=== PATIENT | female | born 1990 | race Caucasian/White ===

== ENCOUNTER 2019-12-07 07:58 | Inpatient (IN) ==
--- OUTSIDE RECORDS SUMMARY | 2019-12-07 08:11 | External Medical Summary | Continuity of Care Document ---
:1990 Author Name Florencio Roman, Provider Address Unavailable Unavailable , Care Team Providers Name Role Phone [facility], Nursing Station Unavailable [email or web address] PCP, UNKNOWN Unavailable Unavailable Problems Active medical history not documented Allergies and Adverse Reactions Tetracyclines (Allergy) Medications Medications not documented Procedures Procedures not documented Immunizations Immunizations not documented Plan of Treatment Planned Observations Planned Goals not documented Results No Known Results Results not documented Encounters Appointment; [facility], Nursing Station 25-May-2018 9:30 Encounter Diagnosis: Problem not documented Appointment; [facility], Nursing Station 27-May-2018 10:15 Encounter Diagnosis: Problem not documented
[2019-12-07] MEDS ORDERED: OXYTOCIN 30 UNITS/500 ML BAG IV PRN ×3 (08:26→19:13)
--- NOTE | 2019-12-07 08:33 | History & Physical Report ---
Date of Service December 07, 2019 Assessment & Plan (1) Amniotic fluid leakin yo at 39.3 wks with SROM, at 06;30 and contractions, in labor VSS Afebrile FHR reassuring GBS negative Plan to admit, monitor, IVF, Epidural anticipate (2) Uterine contractions at greater than 20 weeks of gestation: History of Present Illness Chief Complaint: Leaking of fluids Primary Care Provider: Slime Hodge DO Patient is a 29 yo at 39.3 wks who felt a gush of clear fluid leaking at 06:30 am and has been leaking since then Ctxs started right after, seems like all the time and painful She desires epidural for pain No VB +FM has been complicated by 1) Depression: on Cymbalta 2) Rh negative 3) h/o LEEP, last pap in 2018 HPV+ 4) renal pylectasis Allergies Allergy/AdvReac Type Severity Reaction Status Date / Time No Known Allergies Allergy Verified 12/07/19 08:16 Home Medications Home Medications Medication Instructions Recorded Confirmed Type PNV cmb#95-ferrous fumarate-FA 1 tab PO DAILY 12/07/19 12/07/19 History [] duloxetine [Cymbalta] 30 mg PO BID 12/07/19 12/07/19 History Patient History Medical History Abnormal Pap smear of cervix hx of abnormal pap in 2009 LANA III, since that Paps in 2011 and 2012 normal, +HPV Acne Anxiety Takes Cymbalta Breast enlargement 2012 Depression Takes Cymbalta [employer] History No h/o STD's, no HSV/ GC/ Chlamydia Review of Systems All systems reviewed & are unremarkable except as noted in HPI & below Physical Exam Constitutional: WD/WN, vitals as above well developed, well nourished and + acute distress (with ctxs, desires epidural) Genitourinary: Done by her nurse Hlary: no gross leaking, cervix 4/ %100/ +1 Results & Data Vital Signs (Past 12 Hours) Vital Signs Temp Resp 12/07/19 08:06 36.8 C 18 Monitoring External Monitor Categ I Tocodynamometer ctxs q 2-3 min
[2019-12-07] MEDS: LACTATED RINGER'S 1,000 ML IV PRN ×2 (08:35→09:32)
[2019-12-07 08:46] LABS: Hematocrit (blood only) 35.1 % (37-47); Hemoglobin 12.4 g/dL (12.0-16.0); Mean Corpuscular Hemoglobin 30.8 pg (25-34); Mean Corpuscular Hgb Conc 35.3 g/dL (32-36); Mean Corpuscular Volume 87.1 fL (80-100); Mean Platelet Volume 10.4 fL (7.4-10.4); Platelet Count 206 K/uL (130-400); RDW Coefficient of Variation 12.7 % (11.5-14.5); RDW Standard Deviation 40.6 fL (36.4-46.3); Red Blood Count 4.03 M/uL (4.2-5.4); White Blood Count 8.03 K/uL (4.8-10.8)
[2019-12-07] MEDS ORDERED: BUPIVACAINE 0.25% 30 ML VIAL ONE (08:48)
[2019-12-07] MEDS ORDERED: ePHEDrine sulfate 50 MG/ML AMP ONE (08:48)
[2019-12-07] MEDS ORDERED: fentaNYL citrate 100 MCG/2 ML VIAL ONE (08:48)
[2019-12-07] MEDS ORDERED: fentaNYL 2MCG/ML ROPIV 1.25MG/ML 100 ML BAG EPI ONE (08:49)
[2019-12-07 09:15] LABS: Albumin Level 2.6 gm/dl (3.4-5.0); BUN Creatinine Ratio 10.6 (10-20); Calcium 8.9 mg/dl (8.5-10.1); Creatinine Clr Calc Pharmacy 77.8 ml/min; Est GFR (African American) 88.6; Est GFR (Non-African American) 76.5
[2019-12-07 09:18] LABS: Albumin Globulin Ratio 0.6 (0.9-2); Bilirubin,Total 0.3 mg/dl (0.2-1); Globulin 4.1 gm/dl (2.5-4.0); Total Protein 6.7 gm/dl (6.4-8.2)
[2019-12-07] MEDS ORDERED: NALOXONE HCL 1 MG in SODIUM CHLORIDE 0.9% 1000ML 1,000 ML IV PRN (10:04)
[2019-12-07] MEDS ORDERED: NALOXONE HCL 0.4 MG/1 ML VIAL/CARP IV PRN (10:04)
[2019-12-07] MEDS ORDERED: PROMETHAZINE HCL 6.25 MG in SODIUM CHLORIDE 0.9% 50 ML IV PRN (10:04)
[2019-12-07] MEDS ORDERED: ePHEDrine sulfate 50 MG/ML AMP IV PRN (10:04)
[2019-12-07] MEDS ORDERED: ONDANSETRON INJ 2 MG/ML 2 ML VIAL IV PRN (10:04)
[2019-12-07] MEDS ORDERED: DiphenhydrAMINE HCL 50 MG/ML VIAL IV PRN (10:04)
[2019-12-07] MEDS ORDERED: NALBUPHINE HCL INJ 10 MG/ML AMP IV PRN (10:04)
[2019-12-07] MEDS ORDERED: fentaNYL 2MCG/ML ROPIV 1.25MG/ML 100 ML BAG EPI PRN (10:04)
--- NOTE | 2019-12-07 10:04 | Anesthesiology Consultation ---
Date of Service December 07, 2019 Assessment & Plan (1) Encounter for pre-operative examination: Chart Review Chart Review: Patient NOT seen in Pre Admission Testing and Acceptable Risk for Labor Epidural Consults Requested none ASA ASA2 Proposed Anesthesia Anesthesia Type: Labor Epidural Risk / Benefits Reviewed With: PT / POA / Parent / Guardian, Accepts Plan and Informed Consent Obtained History Height/Weight Height: 5 ft 6 in Weight: 70.76 kg Allergies Allergy/AdvReac Type Severity Reaction Status Date / Time No Known Allergies Allergy Verified 12/07/19 08:16 Medications Home Medications Medication Instructions Recorded Confirmed Last Taken PNV cmb#95-ferrous fumarate-FA 1 tab PO DAILY 12/07/19 12/07/19 12/06/19 22:00 [] duloxetine [Cymbalta] 30 mg PO BID 12/07/19 12/07/19 12/06/19 22:00 Active Medications Generic Name Dose Route Start Last Admin Trade Name Freq PRN Reason Stop Dose Admin Lactated Ringer's 1,000 mls @ 150 mls/hr 12/07/19 08:26 12/07/19 09:32 Lr IV 12/09/19 08:25 150 mls/hr .[id number] PRN Administration L&D Protocol Protocol NPO Date Last Intake of Fluids: 12/07/19 Time Last Intake of Fluids: 06:00 Last Intake of Fluids Comment: water Date Last Intake of Solids: 12/07/19 Time Last Intake of Solids: 06:00 Last Intake of Solids Comment: candy bar Past Medical History Medical History Abnormal Pap smear of cervix hx of abnormal pap in 2009 LANA III, since that Paps in 2011 and 2012 normal, +HPV Acne Anxiety Takes Cymbalta Breast enlargement 2013 Depression Takes Cymbalta Exercise / Class Metabolic Activity II 4-5 Yardwork/Stairs/Walk up hill Past Anesthesia History No Hx of Anesthesia Complications and No Family Hx of Anesthesia Complications History of PONV No Hx of PONV and No Hx of Motion Sickness Social History Smoking Status: Never smoker Hx Alcohol Use: No Hx Substance Use: No substance use type: does not use Physical Exam Vital Signs Last Vital Signs Temp 36.5 C 12/07/19 09:51 Pulse 54 L 12/07/19 10:00 Resp 16 12/07/19 09:51 BP 121/70 12/07/19 10:00 Pulse Ox 100 12/07/19 09:57 ENMT Mouth: no dentition abnormality Thyromental Distance: > or= 3.5 Finger Breadths Mallampati Class: II Neck normal visual inspection Respiratory normal respiratory effort Auscultation: lungs clear to auscultation bilaterally Cardiovascular Rate/Rhythm: regular rate and regular rhythm Psychiatric Orientation: alert Testing Laboratory Results 12/07/19 08:37 12/07/19 08:37
--- NOTE | 2019-12-07 12:56 | Obstetrical Progress Note ---
Date of Service December 07, 2019 Assessment & Plan Admission and Anticipated Discharge Date Admission Date: December 07, 2019 Subjective Patient is reevaluated She feels " fantastic" since epidural No pain VSS Afebrile VE: 5/ 80%/ 0, coned head, gush of clear amniotic fluid FHR categ I Plan to augment with low dose Oxytocin Continue to monitor Results & Data ([facility]) Vital Signs (Past 12 Hours) Vital Signs Temp Pulse Resp BP Pulse Ox 12/07/19 12:52 80 98 12/07/19 12:50 76 110/73 12/07/19 12:47 65 100 12/07/19 12:46 63 117/74 12/07/19 12:42 64 100 12/07/19 12:40 63 112/62 12/07/19 12:37 63 117/74 100 12/07/19 12:32 71 100 12/07/19 12:31 68 109/71 12/07/19 12:27 67 100 12/07/19 12:25 60 120/68 12/07/19 12:22 66 100 12/07/19 12:21 67 114/63 12/07/19 12:17 64 100 12/07/19 12:15 66 115/73 12/07/19 12:12 69 100 12/07/19 12:10 63 116/72 12/07/19 12:07 60 100 12/07/19 12:06 59 L 120/68 12/07/19 12:02 73 100 12/07/19 12:00 59 L 114/68 12/07/19 11:57 59 L 100 12/07/19 11:55 62 114/67 12/07/19 11:52 69 100 12/07/19 11:51 67 115/59 L 12/07/19 11:47 64 100 12/07/19 11:46 63 113/70 12/07/19 11:42 68 116/77 100 12/07/19 11:37 64 99 12/07/19 11:36 63 109/63 12/07/19 11:32 65 100 12/07/19 11:30 62 109/61 12/07/19 11:27 67 100 12/07/19 11:25 67 113/61 12/07/19 11:22 75 100 12/07/19 11:20 65 106/60 12/07/19 11:17 72 100 12/07/19 11:15 64 101/55 L 12/07/19 11:12 64 104/57 L 100 12/07/19 11:07 63 100 12/07/19 11:06 72 114/63 12/07/19 11:02 71 100 12/07/19 11:00 80 128/78 12/07/19 10:57 83 98 12/07/19 10:55 96 H 106/63 12/07/19 10:52 64 100 12/07/19 10:51 69 100/59 L 12/07/19 10:47 67 100 12/07/19 10:45 67 100/55 L 12/07/19 10:42 80 100 12/07/19 10:41 81 133/60 12/07/19 10:37 72 99 12/07/19 10:35 66 100/55 L 12/07/19 10:32 63 98 12/07/19 10:30 65 105/65 12/07/19 10:27 64 98 12/07/19 10:25 69 105/63 12/07/19 10:22 64 100 12/07/19 10:20 61 106/63 12/07/19 10:17 80 100 12/07/19 10:15 66 107/57 L 12/07/19 10:12 58 L 100 12/07/19 10:11 62 97/56 L 12/07/19 10:07 53 L 98 12/07/19 10:06 55 L 122/70 12/07/19 10:04 51 L 117/69 12/07/19 10:02 58 L 122/75 100 12/07/19 10:00 54 L 20 121/70 12/07/19 09:58 57 L 117/72 12/07/19 09:57 54 L 100 12/07/19 09:56 54 L 116/64 12/07/19 09:54 51 L 116/66 12/07/19 09:52 54 L 120/67 99 12/07/19 09:51 36.5 C 16 12/07/19 09:50 54 L 118/66 12/07/19 09:48 56 L 118/65 12/07/19 09:47 66 100 12/07/19 09:46 61 128/67 12/07/19 09:45 20 12/07/19 09:44 55 L 128/62 12/07/19 09:42 76 137/99 100 12/07/19 09:37 65 100 12/07/19 09:32 67 100 12/07/19 09:27 70 100 12/07/19 09:22 59 L 100 12/07/19 09:17 76 100 12/07/19 09:12 64 100 12/07/19 09:07 83 99 12/07/19 09:03 75 93 12/07/19 09:02 54 L 100 12/07/19 08:06 36.8 C 18
--- NOTE | 2019-12-07 17:19 | Obstetrical Progress Note ---
Date of Service December 07, 2019 Assessment & Plan Admission and Anticipated Discharge Date Admission Date: December 07, 2019 Subjective Patient is reevaluated Feels pressure in rectum V 10/+2, small caput FHR categ I Plan to drain bladder and start pushing Continue to monitor Results & Data ([facility]) Vital Signs (Past 12 Hours) Vital Signs Temp Pulse Resp BP Pulse Ox 12/07/19 17:17 102 H 61 L 12/07/19 17:13 63 124/67 12/07/19 17:12 62 100 12/07/19 17:07 62 100 12/07/19 17:02 57 L 100 12/07/19 16:57 57 L 122/75 100 12/07/19 16:52 55 L 100 12/07/19 16:47 55 L 100 12/07/19 16:42 58 L 119/72 100 12/07/19 16:37 55 L 100 12/07/19 16:32 61 100 12/07/19 16:30 61 121/71 12/07/19 16:27 60 100 12/07/19 16:22 61 100 12/07/19 16:20 36.8 C 12/07/19 16:17 56 L 100 12/07/19 16:13 67 136/71 12/07/19 16:12 72 100 12/07/19 16:07 57 L 100 12/07/19 16:02 61 100 12/07/19 15:58 55 L 115/70 12/07/19 15:57 56 L 100 12/07/19 15:52 53 L 100 12/07/19 15:47 79 98 12/07/19 15:43 56 L 109/59 L 12/07/19 15:42 55 L 100 12/07/19 15:37 58 L 100 12/07/19 15:32 56 L 100 12/07/19 15:27 58 L 100 12/07/19 15:22 59 L 100 12/07/19 15:17 58 L 100 12/07/19 15:14 59 L 110/63 12/07/19 15:12 61 100 12/07/19 15:07 59 L 100 12/07/19 15:02 62 100 12/07/19 14:58 56 L 104/62 12/07/19 14:57 55 L 100 12/07/19 14:52 59 L 100 12/07/19 14:47 65 100 12/07/19 14:45 36.8 C 12/07/19 14:42 61 120/70 100 12/07/19 14:37 61 100 12/07/19 14:32 59 L 100 12/07/19 14:28 58 L 112/67 12/07/19 14:27 59 L 100 12/07/19 14:22 60 100 05 14:17 67 100 12/07/19 14:13 59 L 114/68 12/07/19 14:12 69 100 12/07/19 14:07 64 100 12/07/19 14:02 63 99 12/07/19 13:58 64 125/83 12/07/19 13:57 66 100 12/07/19 13:52 58 L 100 12/07/19 13:47 63 100 12/07/19 13:43 58 L 126/79 12/07/19 13:42 59 L 100 12/07/19 13:37 60 100 12/07/19 13:32 59 L 100 12/07/19 13:28 60 129/84 12/07/19 13:27 64 100 12/07/19 13:22 63 100 12/07/19 13:17 69 100 05 13:13 62 124/79 12/07/19 13:12 65 100 12/07/19 13:07 62 100 12/07/19 13:02 64 100 05 12:57 61 100 12/07/19 12:55 75 108/61 12/07/19 12:52 80 98 12/07/19 12:50 76 110/73 05 12:47 65 100 12/07/19 12:46 63 117/74 05 12:42 64 100 12/07/19 12:40 63 112/62 05 12:37 63 117/74 100 12/07/19 12:32 71 100 05 12:31 68 109/71 12/07/19 12:27 67 100 12/07/19 12:25 60 120/68 05 12:22 66 100 05 12:21 67 114/63 05 12:17 64 100 12/07/19 12:15 66 115/73 05 12:12 69 100 05 12:10 63 116/72 05 12:07 60 100 12/07/19 12:06 59 L 120/68 12/07/19 12:02 73 100 12/07/19 12:00 59 L 114/68 12/07/19 11:57 59 L 100 05 11:55 62 114/67 12/07/19 11:52 69 100 12/07/19 11:51 67 115/59 L 12/07/19 11:47 64 100 12/07/19 11:46 63 113/70 12/07/19 11:42 68 116/77 100 12/07/19 11:37 64 99 12/07/19 11:36 63 109/63 05 11:32 65 100 12/07/19 11:30 62 109/61 05 11:27 67 100 12/07/19 11:25 67 113/61 12/07/19 11:22 75 100 05 11:20 65 106/60 05 11:17 72 100 05 11:15 64 101/55 L 12/07/19 11:12 64 104/57 L 100 12/07/19 11:07 63 100 12/07/19 11:06 72 114/63 05 11:02 71 100 12/07/19 11:00 80 128/78 05 10:57 83 98 12/07/19 10:55 96 H 106/63 12/07/19 10:52 64 100 05 10:51 69 100/59 L 12/07/19 10:47 67 100 05 10:45 67 100/55 L 0506 10:42 80 100 05 10:41 81 133/60 05 10:37 72 99 0506 10:35 66 100/55 L 12/07/19 10:32 63 98 05 10:30 65 105/65 05/06 10:27 64 98 05 10:25 69 105/63 0506 10:22 64 100 05 10:20 61 106/63 12/07/19 10:17 80 100 12/07/19 10:15 66 107/57 L 12/07/19 10:12 58 L 100 12/07/19 10:11 62 97/56 L 12/07/19 10:07 53 L 98 12/07/19 10:06 55 L 122/70 12/07/19 10:04 51 L 117/69 12/07/19 10:02 58 L 122/75 100 12/07/19 10:00 54 L 20 121/70 12/07/19 09:58 57 L 117/72 12/07/19 09:57 54 L 100 12/07/19 09:56 54 L 116/64 12/07/19 09:54 51 L 116/66 12/07/19 09:52 54 L 120/67 99 12/07/19 09:51 36.5 C 16 12/07/19 09:50 54 L 118/66 12/07/19 09:48 56 L 118/65 12/07/19 09:47 66 100 12/07/19 09:46 61 128/67 12/07/19 09:45 20 12/07/19 09:44 55 L 128/62 12/07/19 09:42 76 137/99 100 12/07/19 09:37 65 100 12/07/19 09:32 67 100 12/07/19 09:27 70 100 12/07/19 09:22 59 L 100 12/07/19 09:17 76 100 12/07/19 09:12 64 100 12/07/19 09:07 83 99 12/07/19 09:03 75 93 12/07/19 09:02 54 L 100 12/07/19 08:06 36.8 C 18
[2019-12-07] MEDS ORDERED: bisacodyL 10 MG SUPP PR PRN (19:13)
[2019-12-07] MEDS ORDERED: SUPERCREAM 0.870% 15 GM JAR EXT PRN (19:13)
[2019-12-07] MEDS ORDERED: DIPHTHERIA/TETANUS/PERTUSSIS 0.5 ML SYR/VIAL IM ONE (19:13)
[2019-12-07] MEDS ORDERED: OXYCODONE/ACETAMINOPHEN 5mg/325mg TAB PO PRN (19:13)
[2019-12-07] MEDS ORDERED: BENZOCAINE 20% AER SPR 82.5 GM CAN EXT PRN (19:13)
[2019-12-07] MEDS ORDERED: ACETAMINOPHEN 325 MG TAB PO PRN (19:13)
[2019-12-07] MEDS ORDERED: HYDROCORTISONE ACETATE 25 MG SUPP PR PRN (19:13)
--- NOTE | 2019-12-07 19:26 | Anesthesia Procedure Note ---
Date of Service December 07, 2019 Anesthesia Post Epidural Note Vital Signs Vital Signs: Temp Pulse Resp BP Pulse Ox 36.6 C 97 H 18 120/63 96 12/07/19 19:02 12/07/19 19:22 12/07/19 19:02 12/07/19 19:17 12/07/19 19:22 Pain Intensity Bilateral Abdomen: Pain Intensity: 0 Notes Mental Status: alert / awake / arousable and participated in evaluation Nausea / Vomiting: adequately controlled Pain: adequately controlled Airway Patency, RR, SpO2: stable & adequate BP & HR: stable & adequate Hydration State: stable & adequate Neuraxial Anesthesia: was administered and sensory block is resolving Anesthetic Complications: no major complications apparent and Pt Satisfied with anesthetic care Epidural: Removed without complications and With tip intact
[2019-12-07] MEDS: DOCUSATE SODIUM 100 MG CAP PO SCH (21:05)
[2019-12-07] MEDS: IBUPROFEN 600 MG TAB PO PRN (21:06)
[2019-12-07] MEDS: DULOXETINE HCL 30 MG CAP PO SCH (22:01)
--- NOTE | 2019-12-07 22:35 | Delivery Summary ---
DATE OF OPERATION: 12/07/2019 TIME OF DELIVERY: 1834 hours. DETAILS OF DELIVERY: The patient was found to be fully dilated and desired to push. She pushed for about half an hour and delivered the head without difficulty. Shoulders were delivered with minimal traction. Baby was handed off to the mother where mouth and nose were suctioned. Cord was clamped x2 and cut at 1-minute delay and cord blood was obtained. Perineum and vagina were checked for lacerations. There was a second-degree laceration at the posterior fourchette, which was confirmed with rectal exam. Excellent sphincter tone was noted. Gloves were changed. This laceration was repaired with 0 Vicryl in a running locked fashion bringing the bulbocavernous muscles together and skin in a subcuticular fashion. There was a first-degree right labial laceration which was repaired with 3-0 Vicryl on an SH needle. Excellent hemostasis was achieved. Placenta was found to be in the vagina, delivered spontaneously as intact and complete. Uterus was explored, found to be empty. Lower segment was cleared of all clots and debris. Fundus was firm. EBL was 300 mL. Mom and baby tolerated the procedure well. Sponge, lap, needle count was correct x3. Baby was a viable male infant, Apgars 8/9, weight is 3541 gr. No complications happened and I was present during the whole procedure. I attest to the content of the Intraoperative Record and any orders documented therein. Any exceptions are noted below. MTDD
[2019-12-08] MEDS: IBUPROFEN 600 MG TAB PO PRN ×4 (05:08→20:31)
[2019-12-08 06:47] LABS: Hematocrit (blood only) 25.6 % (37-47); Hemoglobin 8.8 g/dL (12.0-16.0); Mean Corpuscular Hemoglobin 30.1 pg (25-34); Mean Corpuscular Hgb Conc 34.4 g/dL (32-36); Mean Corpuscular Volume 87.7 fL (80-100); Mean Platelet Volume 10.3 fL (7.4-10.4); Platelet Count 187 K/uL (130-400); RDW Coefficient of Variation 12.9 % (11.5-14.5); RDW Standard Deviation 41.5 fL (36.4-46.3); Red Blood Count 2.92 M/uL (4.2-5.4); White Blood Count 13.01 K/uL (4.8-10.8)
[2019-12-08] MEDS ORDERED: FERROUS SULFATE 325 MG TAB PO SCH (08:00)
[2019-12-08] MEDS: DOCUSATE SODIUM 100 MG CAP PO SCH ×2 (08:34→20:31)
[2019-12-08] MEDS: DULOXETINE HCL 30 MG CAP PO SCH ×2 (08:34→20:31)
[2019-12-08] MEDS: PRENATAL VITAMIN 1 TAB PO SCH (08:34)
--- NOTE | 2019-12-08 10:47 | Obstetrical Progress Note ---
Date of Service December 08, 2019 Assessment & Plan Admission and Anticipated Discharge Date Admission Date: December 07, 2019 Subjective doing well passing gas ron diet out of bed Physical Exam Constitutional: WD/WN, vitals as above comfortable abdomen soft no edema neg Alicia's Results & Data ([facility]) Vital Signs (Past 12 Hours) Vital Signs Temp Pulse Resp BP Pulse Ox 12/08/19 08:00 36.7 C 65 18 91/56 L 98 12/08/19 02:55 36.6 C 62 16 118/73 98 12/07/19 23:22 36.8 C 77 18 113/65 98 Laboratory Results Laboratory Results - last 72 hr 12/07/19 12/07/19 12/08/19 08:37 08:37 06:13 WBC 8.03 13.01 H RBC 4.03 L 2.92 L Hgb 12.4 8.8 L D Hct 35.1 L 25.6 L MCV 87.1 87.7 MCH 30.8 30.1 MCHC 35.3 34.4 RDW Std Deviation 40.6 41.5 RDW Coeff of Tanya 12.7 12.9 Plt Count 206 187 MPV 10.4 10.3 Sodium 136 Potassium 3.0 L Chloride 107 Carbon Dioxide 18 L Anion Gap 11.0 BUN 11 Creatinine 0.99 Est Cr Clr Drug Dosing 77.8 Est GFR ( Amer) 88.6 Est GFR (Non-Af Amer) 76.5 BUN/Creatinine Ratio 10.6 Glucose 91 Calcium 8.9 Total Bilirubin 0.3 AST 20 ALT 13 Alkaline Phosphatase 167 H Total Protein 6.7 Albumin 2.6 L Globulin 4.1 H Albumin/Globulin Ratio 0.6 L Blood Type Antibody Screen Screen 12/08/19 06:59 WBC RBC Hgb Hct MCV MCH MCHC RDW Std Deviation RDW Coeff of Tanya Plt Count MPV Sodium Potassium Chloride Carbon Dioxide Anion Gap BUN Creatinine Est Cr Clr Drug Dosing Est GFR ( Amer) Est GFR (Non-Af Amer) BUN/Creatinine Ratio Glucose Calcium Total Bilirubin AST ALT Alkaline Phosphatase Total Protein Albumin Globulin Albumin/Globulin Ratio Blood Type A Negative Antibody Screen NEGATIVE Screen Negative
[2019-12-08] MEDS ORDERED: bisacodyL 5 MG TABEC PO SCH (20:00)
[2019-12-09 05:53] LABS: Hematocrit (blood only) 23.5 % (37-47)
[2019-12-09] MEDS ORDERED: FERROUS SULFATE 325 MG TAB PO SCH (07:30)
--- NOTE | 2019-12-09 08:16 | Obstetrical Progress Note ---
Date of Service December 09, 2019 Assessment & Plan Admission and Anticipated Discharge Date Admission Date: December 07, 2019 Subjective Patient is seen and examined. She feels well, no complaints. Desires d/c today Ambulating without dizziness Voiding without difficulty Tolerating regular diet with out N&V Bleeding is minimal No fever/ chills/ CP/ SOB/ N&V/ Leg pain Breast feeding without problems Vital Signs Temp Pulse Pulse Resp BP BP Pulse Ox 12/08/19 23:45 36.9 C 74 16 106/64 12/08/19 19:50 36.6 C 80 18 113/69 12/08/19 15:19 36.9 C 73 18 118/63 12/08/19 12:09 36.9 C 76 17 120/74 12/08/19 11:29 36.7 C 86 16 135/64 98 Pulse: 70 Lab Results 12/07/19 12/07/19 12/08/19 Range/Units 08:37 08:37 06:13 WBC 8.03 13.01 H (4.8-10.8) K/uL RBC 4.03 L 2.92 L (4.2-5.4) M/uL Hgb 12.4 8.8 L D (12.0-16.0) g/dL Hct 35.1 L 25.6 L (37-47) % MCV 87.1 87.7 (80-100) fL MCH 30.8 30.1 (25-34) pg MCHC 35.3 34.4 (32-36) g/dL RDW Std Deviation 40.6 41.5 (36.4-46.3) fL RDW Coeff of Tanya 12.7 12.9 (11.5-14.5) % Plt Count 206 187 (130-400) K/uL MPV 10.4 10.3 (7.4-10.4) fL Sodium 136 (136-145) mmol/L Potassium 3.0 L (3.5-5.1) mmol/L Chloride 107 (98-107) mmol/L Carbon Dioxide 18 L (21-32) mmol/L Anion Gap 11.0 (3-11) BUN 11 (7-18) mg/dl Creatinine 0.99 (0.6-1.2) mg/dl Est Cr Clr Drug Dosing 77.8 ml/min Est GFR ( Amer) 88.6 Est GFR (Non-Af Amer) 76.5 BUN/Creatinine Ratio 10.6 (10-20) Glucose 91 (70-99) mg/dl Calcium 8.9 (8.5-10.1) mg/dl Total Bilirubin 0.3 (0.2-1) mg/dl AST 20 (15-37) U/L ALT 13 (12-78) U/L Alkaline Phosphatase 167 H (45-117) U/L Total Protein 6.7 (6.4-8.2) gm/dl Albumin 2.6 L (3.4-5.0) gm/dl Globulin 4.1 H (2.5-4.0) gm/dl Albumin/Globulin Ratio 0.6 L (0.9-2) Blood Type Antibody Screen Screen (Negative) 12/08/19 12/09/19 Range/Units 06:59 05:39 WBC (4.8-10.8) K/uL RBC (4.2-5.4) M/uL Hgb 8.0 L (12.0-16.0) g/dL Hct 23.5 L (37-47) % MCV (80-100) fL MCH (25-34) pg MCHC (32-36) g/dL RDW Std Deviation (36.4-46.3) fL RDW Coeff of Tanya (11.5-14.5) % Plt Count (130-400) K/uL MPV (7.4-10.4) fL Sodium (136-145) mmol/L Potassium (3.5-5.1) mmol/L Chloride (98-107) mmol/L Carbon Dioxide (21-32) mmol/L Anion Gap (3-11) BUN (7-18) mg/dl Creatinine (0.6-1.2) mg/dl Est Cr Clr Drug Dosing ml/min Est GFR ( Amer) Est GFR (Non-Af Amer) BUN/Creatinine Ratio (10-20) Glucose (70-99) mg/dl Calcium (8.5-10.1) mg/dl Total Bilirubin (0.2-1) mg/dl AST (15-37) U/L ALT (12-78) U/L Alkaline Phosphatase (45-117) U/L Total Protein (6.4-8.2) gm/dl Albumin (3.4-5.0) gm/dl Globulin (2.5-4.0) gm/dl Albumin/Globulin Ratio (0.9-2) Blood Type A Negative Antibody Screen NEGATIVE Screen Negative (Negative) PE: General: Alert, orientedx3, NAD Abd: soft, NT, fundus firm, below Umbilicus Perineum intact, Lochia rubra minimal Ext; NT, no edema AP: 29 yo s/p , ppd# 2 VSS Afebrile doing well Anemic but asymptomatic, discussed how to use iron Continue routine care Discussed when to call All questions were answered D/C home , f/u in office Results & Data ([facility]) Vital Signs (Past 12 Hours) Vital Signs Temp Pulse Resp BP 12/08/19 23:45 36.9 C 74 16 106/64
[2019-12-09] MEDS: PRENATAL VITAMIN 1 TAB PO SCH (09:09)
[2019-12-09] MEDS: DULOXETINE HCL 30 MG CAP PO SCH (09:10)
[2019-12-09] MEDS: IBUPROFEN 600 MG TAB PO PRN (09:10)
[2019-12-09] MEDS: DOCUSATE SODIUM 100 MG CAP PO SCH (09:11)
== END 2019-12-09 12:20 | disposition home or self-care (01) | DRG 807 ==
LOC: OPB 07:58 → 4S1 08:10 → 4S2 21:53

== ENCOUNTER 2020-11-27 00:22 | Inpatient (IN) ==
[2020-11-27] MEDS ORDERED: LIDOCAINE HCL 1% 20 ML VIAL ONE (00:43)
[2020-11-27] MEDS ORDERED: MEPERIDINE HCL 25 MG/ML CARP/VIAL ONE (00:43)
[2020-11-27] MEDS ORDERED: OXYTOCIN 30 UNITS/500 ML BAG IV PRN (01:03)
[2020-11-27] MEDS ORDERED: SUPERCREAM 0.870% 15 GM JAR EXT PRN (01:03)
[2020-11-27] MEDS ORDERED: MEASLES, MUMPS & RUBELLA VIRUS VIAL SQ ONE (01:03)
[2020-11-27] MEDS ORDERED: bisacodyL 10 MG SUPP PR PRN (01:03)
[2020-11-27] MEDS ORDERED: BENZOCAINE 20% AER SPR 82.5 GM CAN EXT PRN (01:03)
[2020-11-27] MEDS ORDERED: DIPHTHERIA/TETANUS/PERTUSSIS 0.5 ML SYR/VIAL IM ONE (01:03)
[2020-11-27] MEDS ORDERED: IBUPROFEN 600 MG TAB PO PRN (01:03)
[2020-11-27] MEDS ORDERED: HYDROCORTISONE ACETATE 25 MG SUPP PR PRN (01:03)
[2020-11-27] MEDS ORDERED: ACETAMINOPHEN 325 MG TAB PO PRN (01:03)
--- NOTE | 2020-11-27 01:17 | History & Physical Report ---
Date of Service November 27, 2020 Assessment & Plan (1) Precipitate labor, delivered, current hospitalization: Patient is a 30-year-old -0-0-2 delivered at home last night at 11:21 PM precipitously and delivered the placenta spontaneously in 1520 minutes per patient she was brought by ambulance. Vital signs stable afebrile Baby is stable and per ambulance team was 10 when they arrived. Placenta was complete and intact. There was a second-degree perineal laceration which I repaired with local anesthesia see above note for details. We will admit her obtain CBC and give IV Pitocin and monitor closely. Admission and Anticipated Discharge Date Admission Date: November 27, 2020 History of Present Illness Primary Care Provider: Amy Pratt DO Patient is a 30-year-old who presented to labor and delivery in ambulance after precipitous delivery of an infant at home at 23:21 PM on November 26, 2020. She was at 39 weeks of . She started to feel back pain cramping around 22:50 PM and then felt to use the bathroom and felt a gush of fluid coming at the bathroom and hardly climb up to bed and deliver the baby spontaneously at 20 3:21 PM. And placenta came after in about 15 to 20-minute minutes not sure. Baby was moving and crying normally she called ambulance and the team brought her to labor and delivery. Her was uncomplicated except 1)Rh negative, received RhoGam 2) Depression/ anxiety, on Cymbalta 3) Close interval, delivery on 2019 Allergies Allergy/AdvReac Type Severity Reaction Status Date / Time No Known Allergies Allergy Verified 12/07/19 08:16 Home Medications Medication Instructions Recorded Confirmed Type PNV cmb#95-ferrous fumarate-FA 1 tab PO DAILY 12/07/19 12/07/19 History [] duloxetine [Cymbalta] 30 mg PO BID 12/07/19 12/07/19 History ferrous sulfate 325 mg PO DAILY@08 #30 tab 12/08/19 Rx ibuprofen 600 mg PO Q4H #30 tab 12/08/19 Rx docusate sodium 100 mg PO DAILY@08,21 #60 cap 12/09/19 Rx ferrous sulfate 325 mg PO BID #60 tab 12/09/19 Rx vit no.[id number] 1 tab PO DAILY@08 #90 tab 12/09/19 Rx [ Vitamin] Patient History Medical History (Updated 11/27/20 @ 01:15 by Yris Diaz MD) Abnormal Pap smear of cervix hx of abnormal pap in 2009 LANA III, since that Paps in 2011 and 2012 normal, +HPV Acne Anxiety Takes Cymbalta Breast enlargement 2012 Depression Takes Cymbalta Social History Smoking Status: Never smoker Hx Alcohol Use: No Hx Substance Use: No Preferred Language: Niuean Communication Ability: Effective 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 Patient was very sensitive to touch and I was able to see a small perineal laceration at 5 o'clock position. Patient initially refused digital exam pelvic exam due to discomfort. After long discussion she agreed to get IV Demerol and lidocaine for local anesthesia to repair the laceration. After IV Demerol was given perineum was washed with sterile water and then lidocaine was injected at the laceration. It was found to be second-degree perineal laceration at 5 o'clock position. And then digital exam was done and emptied blood clots from lower uterine segment. Although exam was limited uterus felt to be empty. Placenta was checked to be complete and intact. Then second-degree laceration was repaired with 2-0 Vicryl in a running fashion bringing vaginal mucosa together to both corners muscles together and secured in a subcuticular fashion. Patient patient tolerated the procedure well. Results & Data ([facility]) Vital Signs (Past 12 Hours) Vital Signs Temp Pulse Resp BP 11/27/20 01:02 36.8 C 81 18 139/72 11/27/20 00:54 100 H 117/62 11/27/20 00:39 75 126/76 11/27/20 00:31 36.8 C 18 11/27/20 00:27 36.8 C 18
[2020-11-27 01:41] LABS: Basophils # (auto) 0.03 K/uL (0-0.2); Basophils % (auto) 0.3 %; Eosinophils # (auto) 0.05 K/uL (0-0.5); Eosinophils % (auto) 0.5 %; Hematocrit (blood only) 32.2 % (37-47); Hemoglobin 11.4 g/dL (12.0-16.0); Immature Granulocytes # (auto) 0.02 K/uL (0.00-0.02); Immature Granulocytes % (auto) 0.2 %; Lymphocytes # (auto) 1.43 K/uL (1.2-3.4); Lymphocytes % (auto) 15.2 %; Mean Corpuscular Hgb Conc 35.4 g/dL (32-36); Mean Corpuscular Volume 87.5 fL (80-100); Mean Platelet Volume 10.2 fL (7.4-10.4); Monocytes # (auto) 0.77 K/uL (0.11-0.59); Monocytes % (auto) 8.2 %; Neutrophils # (auto) 7.08 K/uL (1.4-6.5); Neutrophils % (auto) 75.6 %; Platelet Count 174 K/uL (130-400); RDW Coefficient of Variation 13.7 % (11.5-14.5); RDW Standard Deviation 43.9 fL (36.4-46.3); Red Blood Count 3.68 M/uL (4.2-5.4); White Blood Count 9.38 K/uL (4.8-10.8)
[2020-11-27] MEDS: PRENATAL VITAMIN 1 TAB PO SCH (08:50)
[2020-11-27] MEDS: FERROUS SULFATE 325 MG TAB PO SCH (08:50)
[2020-11-27] MEDS: DOCUSATE SODIUM 100 MG CAP PO SCH ×2 (08:50→20:51)
[2020-11-27] MEDS: DULoxetine HCL 30 MG CAP PO SCH (09:16)
[2020-11-27] MEDS ORDERED: DULoxetine HCL 60 MG CAP PO SCH (21:00)
[2020-11-28 06:43] LABS: Hematocrit (blood only) 31.4 % (37-47); Hemoglobin 11.1 g/dL (12.0-16.0); Mean Corpuscular Hemoglobin 30.8 pg (25-34); Mean Corpuscular Hgb Conc 35.4 g/dL (32-36); Mean Corpuscular Volume 87.2 fL (80-100); Mean Platelet Volume 10.1 fL (7.4-10.4); Platelet Count 164 K/uL (130-400); RDW Coefficient of Variation 13.9 % (11.5-14.5); RDW Standard Deviation 44.3 fL (36.4-46.3); White Blood Count 9.07 K/uL (4.8-10.8)
[2020-11-28] MEDS: FERROUS SULFATE 325 MG TAB PO SCH (09:05)
[2020-11-28] MEDS: PRENATAL VITAMIN 1 TAB PO SCH (09:05)
[2020-11-28] MEDS: DOCUSATE SODIUM 100 MG CAP PO SCH (09:05)
[2020-11-28] MEDS: DULoxetine HCL 30 MG CAP PO SCH (09:06)
--- NOTE | 2020-11-28 09:16 | Obstetrical Progress Note ---
Date of Service November 28, 2020 Assessment & Plan Admission and Anticipated Discharge Date Admission Date: November 27, 2020 Subjective PPD#2 doing well passing gas positive BM tolerating diet well out of bed Physical Exam Constitutional: WD/WN, vitals as above well developed and comfortable abdomen soft and non-tender neg Pascual's no edema neg Pascual's for d/c Results & Data ([facility]) Vital Signs (Past 12 Hours) Vital Signs Temp Pulse Resp BP Pulse Ox 11/28/20 07:42 36.8 C 71 18 110/69 99 11/27/20 23:05 37.1 C 80 16 98/63 L 98 Laboratory Results Laboratory Results - last 72 hr 11/27/20 11/27/20 11/27/20 00:55 00:55 01:33 WBC 9.38 RBC 3.68 L Hgb 11.4 L Hct 32.2 L MCV 87.5 MCH 31.0 MCHC 35.4 RDW Std Deviation 43.9 RDW Coeff of Tanya 13.7 Plt Count 174 MPV 10.2 Immature Gran % (Auto) 0.2 Neut % (Auto) 75.6 Lymph % (Auto) 15.2 [place]oux % (Auto) 8.2 Eos % (Auto) 0.5 Baso % (Auto) 0.3 Neut # (Auto) 7.08 H Lymph # (Auto) 1.43 [place] # (Auto) 0.77 H Eos # (Auto) 0.05 Baso # (Auto) 0.03 Immature Gran # (Auto) 0.02 COVID-19 Eval Order Covid19 IDNow atMMTC SARS-CoV-2, RNA, NAAT NEGATIVE Blood Type Antibody Screen Screen 11/28/20 11/28/20 05:49 05:49 WBC 9.07 RBC 3.60 L Hgb 11.1 L Hct 31.4 L MCV 87.2 MCH 30.8 MCHC 35.4 RDW Std Deviation 44.3 RDW Coeff of Tanya 13.9 Plt Count 164 MPV 10.1 Immature Gran % (Auto) Neut % (Auto) Lymph % (Auto) [place] % (Auto) Eos % (Auto) Baso % (Auto) Neut # (Auto) Lymph # (Auto) [place] # (Auto) Eos # (Auto) Baso # (Auto) Immature Gran # (Auto) COVID-19 Eval Order SARS-CoV-2, RNA, NAAT Blood Type A Negative Antibody Screen NEGATIVE Screen Negative
[2020-11-28] MEDS ORDERED: bisacodyL 5 MG TABEC PO SCH (20:00)
== END 2020-11-28 11:20 | disposition home or self-care (01) | DRG 769 ==
LOC: 4S1 00:22 → 4S2 03:25

== ENCOUNTER 2023-01-12 11:10 | Inpatient (IN) ==
[2023-01-12] MEDS: LACTATED RINGER'S 1,000 ML IV PRN ×2 (11:15→12:16)
[2023-01-12] MEDS ORDERED: BETAMETH SOD PHOS/ACETATE IA 6 MG/ML IM STA (11:52)
--- NOTE | 2023-01-12 11:52 | Obstetrical Progress Note ---
Date of Service January 12, 2023 Assessment & Plan (1) with third trimester bleeding: Plan: pt is a 32yo at 36+ weeks sent from office with co bleeding and possible SROM On arrival to L&D pt has appeared diaphoretic and was immediately placed on bed and Trendelenburg position IV was started , FH was obtained and i was called to room bedside sono; VT with moderate fluid. posterior placenta. no previa seen VE 3cm/50/with bulging membranes,scarred cervix from LEEP Minimal ctx Plan Admit Abruption labs Monitor FH BTMX series Admission and Anticipated Discharge Date Admission Date: January 12, 2023 Results & Data Vital Signs (Past 12 Hours) Vital Signs Pulse BP Pulse Ox 01/12/23 11:46 78 100 01/12/23 11:43 89 117/62 01/12/23 11:41 81 100 01/12/23 11:40 84 126/61 01/12/23 11:37 73 105/60 01/12/23 11:36 72 100 01/12/23 11:34 67 98/58 L 01/12/23 11:31 68 101/59 L 100 01/12/23 11:28 79 99/61 L 01/12/23 11:26 79 100 01/12/23 11:25 82 98/65 L 01/12/23 11:22 78 101/68 01/12/23 11:21 77 100 01/12/23 11:19 69 75/42 L
[2023-01-12 12:24] LABS: Basophils # (auto) 0.06 K/uL (0-0.2); Basophils % (auto) 0.7 %; Eosinophils # (auto) 0.07 K/uL (0-0.50); Eosinophils % (auto) 0.8 %; Hematocrit (blood only) 31.9 % (37.0-47.0); Hemoglobin 11.1 g/dl (12.0-16.0); Immature Granulocytes # (auto) 0.03 K/uL (0.01-0.20); Immature Granulocytes % (auto) 0.3 %; Lymphocytes # (auto) 1.27 K/uL (1.2-3.4); Lymphocytes % (auto) 13.8 %; Mean Corpuscular Hemoglobin 31.1 pg (25.0-34.0); Mean Corpuscular Hgb Conc 34.8 g/dL (32.0-36.0); Mean Corpuscular Volume 89.4 fL (80.0-100.0); Mean Platelet Volume 10.5 fL (9.4-12.4); Monocytes # (auto) 0.44 K/uL (0.11-0.59); Monocytes % (auto) 4.8 %; Neutrophils % (auto) 79.6 %; Platelet Count 159 K/uL (130-400); RDW Coefficient of Variation 12.4 % (11.5-14.5); RDW Standard Deviation 40.6 fL (36.4-46.3); Red Blood Count 3.57 M/uL (4.20-5.40); White Blood Count 9.17 K/ul (4.8-10.8)
[2023-01-12 12:38] LABS: Est GFR (African American) 112.3 ml/min; Est GFR (Non-African American) 96.9 ml/min; Potassium 3.6 mmol/L (3.5-5.1)
[2023-01-12 12:39] LABS: BUN Creatinine Ratio 13.8 (10-20); Calcium 8.3 mg/dl (8.6-10.3); Creatinine Clr Calc Pharmacy 93.6 ml/min
[2023-01-12 13:46] LABS: Fibrinogen 435 mg/dl (184-400)
[2023-01-12] MEDS ORDERED: LIDOCAINE 1% LOCAL 20 ML VIAL INFIL PRN (14:27)
[2023-01-12] MEDS ORDERED: SODIUM CHLORIDE 0.9% 250 ML IV PRN (14:31)
[2023-01-12 14:56] LABS: INR 0.9 (0.9-1.1); Prothrombin Time 9.8 Seconds (9.0-12.0)
[2023-01-12] MEDS ORDERED: CITRIC ACID/SODIUM CITRATE 15 ML UDC PO ONE (15:29)
[2023-01-12] MEDS ORDERED: ceFAZolin 2000MG 2,000 MG/15 ML SYR IV ONE (15:30)
[2023-01-12] MEDS ORDERED: MoRPHine SULFATE PF 1 MG/ML 10 ML AMP/VIAL ONE (15:35)
[2023-01-12] MEDS ORDERED: fentaNYL citrate PF 100 MCG/2 ML VIAL ONE (15:35)
--- NOTE | 2023-01-12 16:09 | Anesthesiology Consultation ---
Date of Service January 12, 2023 Assessment & Plan Chart Review Chart Review: Acceptable Risk for Surgery and Patient NOT seen in Pre Admission Testing Consults Requested none History Surgery Operation Date: 01/12/23 15:30 Proposed Procedures p Section in LD - Brian Cherry MD Height/Weight Height: 5 ft 6 in Weight: 70.76 kg Allergies Allergy/AdvReac Type Severity Reaction Status Date / Time No Known Allergies Allergy Verified 01/12/23 11:49 Medications Home Medications Medication Instructions Recorded Confirmed Last Taken duloxetine 30 mg capsule,delayed 120 mg PO HS 12/07/19 01/12/23 01/11/23 release (Cymbalta) vit no.95-ferrous 1 tab PO DAILY 12/07/19 01/12/23 01/11/23 fumarate 28 mg-folic acid 800 mcg tablet () methylphenidate HCl 36 mg 36 mg PO QAM 01/12/23 01/12/23 01/11/23 tablet,extended release 24 hr (Concerta) Active Medications Generic Name Dose Route Start Last Admin Trade Name Freq PRN Reason Stop Dose Admin Lactated Ringer's 1,000 mls @ 125 mls/hr 01/12/23 11:44 01/12/23 12:16 Lr IV 02/11/23 11:43 125 mls/hr .Q8H PRN Administration L&D Protocol Protocol Past Medical History Medical History Abnormal Pap smear of cervix hx of abnormal pap in 2009 LANA III, since that Paps in 2011 and 2012 normal, +HPV Acne Anxiety Takes Cymbalta Breast enlargement 2012 Depression Takes Cymbalta Social History Smoking Status: Never smoker Hx Alcohol Use: No Hx Substance Use: No substance use type: does not use Physical Exam Vital Signs Last Vital Signs Temp 98.1 F 01/12/23 11:12 Pulse 86 01/12/23 15:35 Resp 20 01/12/23 11:12 BP 117/62 01/12/23 11:43 Pulse Ox 98 01/12/23 15:35 Testing Laboratory Results 01/12/23 11:59 01/12/23 11:59 PT 9.8 Seconds (9.0-12.0) 01/12/23 13:56 INR 0.9 (0.9-1.1) 01/12/23 13:56 Blood Type A Negative 01/12/23 12:05 Antibody Screen NEGATIVE 01/12/23 12:05
[2023-01-12] MEDS ORDERED: PROMETHAZINE HCL 12.5 MG in SODIUM CHLORIDE 0.9% 50 ML IV PRN (16:10)
[2023-01-12] MEDS ORDERED: diphenhydrAMINE 50 MG/ML VIAL IV PRN (16:10)
[2023-01-12] MEDS ORDERED: NALBUPHINE HCL INJ 10 MG/ML AMP IV PRN (16:10)
[2023-01-12] MEDS ORDERED: NALOXONE HCL 1 MG in SODIUM CHLORIDE 0.9% 1000ML 1,000 ML IV PRN (16:10)
[2023-01-12] MEDS ORDERED: ACETAMINOPHEN 1,000 MG/100 ML VIAL IV PRN (16:10)
[2023-01-12] MEDS ORDERED: MoRPHine SULFATE PF 1 MG/ML 10 ML AMP/VIAL INT SPINAL ONE (16:10)
[2023-01-12] MEDS ORDERED: KETOROLAC 30 MG/ML VIAL IV PRN (16:10)
[2023-01-12] MEDS ORDERED: HYDROmorphone INJ 0.5 MG/0.5 ML SYR IV PRN (16:10)
[2023-01-12] MEDS ORDERED: ePHEDrine sulfate 50 MG/ML AMP IV PRN (16:10)
[2023-01-12] MEDS ORDERED: NALOXONE HCL 0.08 MG in SYRINGE 1.8 ML IV PRN (16:10)
[2023-01-12] MEDS ORDERED: ONDANSETRON INJ 2 MG/ML 2 ML VIAL IV PRN (16:10)
[2023-01-12] MEDS ORDERED: LACTATED RINGER'S 500 ML IV PRN (16:10)
[2023-01-12] MEDS ORDERED: NALOXONE HCL 0.4 MG/1 ML VIAL/CARP IV PRN (16:10)
[2023-01-12] MEDS ORDERED: DC INTRASPINAL MORPHINE SCH (16:15)
[2023-01-12] MEDS ORDERED: SODIUM CHLORIDE 0.9% 1000ML 1,000 ML IV SCH (16:15)
[2023-01-12] MEDS ORDERED: NO NARCOTICS OR SEDATIVES SCH (16:15)
[2023-01-12 16:32] LABS: Base Excess Cord Arterial Bld -4.2 mEq/L (-9-1.8); CO2 Cord Arterial Blood 64 mmHg (39.1-73.5); HCO3 Cord Arterial Blood 25 mmol/L (19.7-28.5); Oxygen Sat Cord Arterial Blood < 60.0 % (<60); PO2 Cord Arterial Blood < 6 mmHg (4.1-31.7)
[2023-01-12 16:35] LABS: Base Excess Cord Venous Blood -4.2 mEq/L (-7.7-1.9); Cord Venous Blood HCO3 24 mmol/L (18.4-26.8); Cord Venous Blood PCO2 56 mmHg (30.4-57.2); Cord Venous Blood PO2 7 mmHg (14.1-43.3); Cord Venous Blood pH 7.24 (7.20-7.44); O2 Saturation Cord Venous Bld < 60.0 % (<68)
[2023-01-12] MEDS ORDERED: miSOPROStoL 200 MCG TAB ONE (16:42)
[2023-01-12] MEDS ORDERED: METHYLERGONOVINE MALEATE 0.2 MG/ML AMP ONE (16:43)
[2023-01-12] MEDS ORDERED: MAGNESIUM HYDROXIDE SUSP 30 ML UDC PO PRN (16:55)
[2023-01-12] MEDS ORDERED: HYDROCORTISONE ACETATE 25 MG SUPP PR PRN (16:55)
[2023-01-12] MEDS ORDERED: SENNA 8.6 MG TAB PO PRN (16:55)
[2023-01-12] MEDS ORDERED: DIPHTHERIA/TETANUS/PERTUSSIS Vaccine (Tdap, Age 7+yrs) 0.5mL SYR/VL IM ONE (16:55)
[2023-01-12] MEDS ORDERED: BENZOCAINE 20% AER SPR 82.5 GM CAN EXT PRN (16:55)
[2023-01-12] MEDS ORDERED: LACTATED RINGER'S 1,000 ML IV SCH (17:00)
--- NOTE | 2023-01-12 17:48 | Anesthesiology Progress Note ---
Date of Service January 12, 2023 Anesthesia Post Procedure Vital Signs Vital Signs: Temp Pulse Resp BP Pulse Ox 01/12/23 16:50 97.3 F L 16 01/12/23 11:16 75 87/53 L 01/12/23 11:12 98.1 F 20 123/62 01/12/23 17:45 79 98 01/12/23 17:40 81 99 01/12/23 17:39 119/73 01/12/23 17:35 67 97 01/12/23 17:30 76 99 01/12/23 17:29 69 118/66 01/12/23 17:25 64 96 01/12/23 17:20 80 96 01/12/23 17:19 63 110/67 01/12/23 17:15 65 94 01/12/23 17:10 66 94 01/12/23 17:09 80 120/58 L 01/12/23 17:05 81 96 01/12/23 17:00 71 94 01/12/23 16:59 80 95/51 L 01/12/23 16:55 65 97 01/12/23 16:50 96 01/12/23 16:50 77 01/12/23 16:50 71 97/53 L 01/12/23 15:35 86 98 01/12/23 15:30 81 100 01/12/23 15:25 97 H 99 01/12/23 15:20 104 H 95 01/12/23 15:15 76 97 01/12/23 15:10 73 97 01/12/23 15:05 73 97 01/12/23 15:00 69 98 01/12/23 14:55 70 97 01/12/23 14:50 69 97 01/12/23 14:45 69 97 01/12/23 14:40 71 97 01/12/23 14:35 68 97 01/12/23 14:30 71 97 01/12/23 14:25 66 98 01/12/23 14:20 78 99 01/12/23 14:15 67 97 01/12/23 14:10 75 97 01/12/23 14:05 70 98 01/12/23 14:00 69 99 01/12/23 13:55 71 97 01/12/23 13:50 68 99 01/12/23 13:45 68 98 01/12/23 13:40 70 98 01/12/23 13:35 71 99 01/12/23 13:30 70 100 01/12/23 13:25 92 H 100 01/12/23 13:20 76 99 01/12/23 13:15 79 99 01/12/23 13:11 69 100 01/12/23 13:06 86 100 01/12/23 13:00 72 98 01/12/23 12:55 72 100 01/12/23 12:50 68 100 01/12/23 12:45 68 100 01/12/23 12:41 77 100 01/12/23 12:36 67 100 01/12/23 12:30 73 100 01/12/23 12:25 70 100 01/12/23 12:20 65 100 01/12/23 12:16 70 100 01/12/23 12:10 68 99 01/12/23 12:06 87 100 01/12/23 12:00 70 99 01/12/23 11:56 71 99 01/12/23 11:50 70 99 01/12/23 11:46 78 100 01/12/23 11:43 89 117/62 01/12/23 11:41 81 100 01/12/23 11:40 84 126/61 01/12/23 11:37 73 105/60 01/12/23 11:36 72 100 01/12/23 11:34 67 98/58 L 01/12/23 11:31 68 101/59 L 100 01/12/23 11:28 79 99/61 L 01/12/23 11:26 79 100 01/12/23 11:25 82 98/65 L 01/12/23 11:22 78 101/68 01/12/23 11:21 77 100 01/12/23 11:19 69 75/42 L Transfer of Care Handoff Completed per policy Notes Mental Status: alert / awake / arousable and participated in evaluation Patient Amnestic to Procedure: No Nausea / Vomiting: adequately controlled Pain: adequately controlled Airway Patency, RR, SpO2: stable & adequate BP & HR: stable & adequate Hydration State: stable & adequate Neuraxial Anesthesia: was administered and sensory block is resolving Anesthetic Complications: no major complications apparent and Pt Satisfied with anesthetic care
[2023-01-12] MEDS: SIMETHICONE 80 MG CHEW PO SCH ×2 (18:45→21:15)
--- NOTE | 2023-01-12 20:42 | Operative Report (OR) ---
DATE OF PROCEDURE: 01/12/2023. INDICATION FOR SURGERY: This is a 32-year-old G4, P2, at 36 weeks and 4 days, presented to labor and delivery with significant bleeding. The patient was monitored. Her bleeding continued to improve. Decision was therefore made to proceed with section and suspicion for abruption of placenta . PREOPERATIVE DIAGNOSES: 1. at 36.4 weeks. 2. Suspected abruption. POSTOPERATIVE DIAGNOSES: 1. at 36.4 weeks. 2. Suspected abruption. SURGEON: Brian Cherry MD. WHIZZER HAND: Sandie Hollingsworth RN. SURGERY: Primary section. ATTESTATION FOR WHIZZER HAND: Managed Care Provider was necessary to help with retraction and manipulation of instr uments in order to provide for safe surgery. ANESTHESIA: Spinal. DRAINS: None. ESTIMATED BLOOD LOSS: 700 mL. INTRAVENOUS FLUIDS: 1300 mL. URINE OUTPUT: 300 mL of clear urine at the end of the procedure. SPECIMENS: Placenta, cord blood and cord gases. INTRAOPERATIVE COMPLICATIONS: None. PATIENT CONDITION: Stable. DISPOSITION: Postanesthesia care unit. ATTESTATION: I performed the entire procedure. DESCRIPTION OF PROCEDURE: The patient was taken to the operating room where she was prepped and drap ed in normal sterile fashion in dorsal lithotomy position. A Pfannenstiel incision was made and hensley ied down to the fascia. Fascia was incised in the midline and extended laterally on both sides. Fas ben was sharply dissected off the rectus abdominis muscle superiorly and inferiorly. Peritoneum was identified and entered sharply. An Gerson retractor was placed for retraction. Vesicouterine perito neum was sharply dissected over the lower segment of the uterus. A low transverse incision was made on the uterus and extended laterally on both sides using bandage s cissors. Amniotomy was performed. Fluid was clear upon amniotomy. was delivered, head first and rest of the body followed. There was no nuchal cord. Cord was clamped and cut and cord blood a nd cord gases obtained. was handed to the pediatric team. Details of the infant's informatio n is in the pediatric record. Placenta appeared to be slightly to moderately abrupted. Placenta was manually removed and sent to p athology for pathological analysis. Uterus was exteriorized and cleared of all clots and debris. Ut erus was closed in 2 layers with Vicryl stitch. There was good hemostasis. Copious amount of irriga tion was used to irrigate the abdomen. Peritoneum was closed with plain suture. Rectus abdominis mu scle was reapproximated using [id number] closure with plain suture. The fascia was closed in a running fashion using Vicryl stitch. Subcutaneous space was irrigated and approximated using plain s uture again. Skin was closed with lorraine. All instruments were removed from the abdomen including sponges, retractors and needles and accounted for x 2. The patient was sent to recovery in stable condition. Job ID: [id number]
[2023-01-12] MEDS ORDERED: Nursing to Pharmacy Communication SCH (21:00)
[2023-01-12] MEDS: DOCUSATE SODIUM 100 MG CAP PO SCH (21:15)
[2023-01-12] MEDS: PRENATAL VITAMIN 1 TAB PO SCH (21:15)
[2023-01-12] MEDS ORDERED: CONCERTA~ORDER AWAITING ACTION SCH (21:15)
[2023-01-12] MEDS: DULoxetine HCL 60 MG CAP PO SCH (21:15)
[2023-01-12] MEDS: OXYTOCIN 20 UNITS in LACTATED RINGER'S 1,000 ML IV SCH (21:20)
[2023-01-13] MEDS: OXYTOCIN 20 UNITS in LACTATED RINGER'S 1,000 ML IV SCH (04:59)
[2023-01-13 07:12] LABS: Basophils # (auto) 0.01 K/uL (0-0.2); Basophils % (auto) 0.1 %; Hematocrit (blood only) 28.5 % (37.0-47.0); Hemoglobin 10.3 g/dl (12.0-16.0); Immature Granulocytes % (auto) 0.6 %; Lymphocytes # (auto) 1.12 K/uL (1.2-3.4); Lymphocytes % (auto) 6.9 %; Mean Corpuscular Hemoglobin 31.2 pg (25.0-34.0); Mean Corpuscular Hgb Conc 36.1 g/dL (32.0-36.0); Mean Corpuscular Volume 86.4 fL (80.0-100.0); Mean Platelet Volume 10.4 fL (9.4-12.4); Monocytes # (auto) 0.77 K/uL (0.11-0.59); Monocytes % (auto) 4.8 %; Neutrophils # (auto) 14.15 K/uL (1.40-6.50); Neutrophils % (auto) 87.6 %; Platelet Count 156 K/uL (130-400); RDW Coefficient of Variation 11.9 % (11.5-14.5); RDW Standard Deviation 37.7 fL (36.4-46.3); White Blood Count 16.15 K/ul (4.8-10.8)
[2023-01-13] MEDS: DOCUSATE SODIUM 100 MG CAP PO SCH ×2 (07:59→21:23)
[2023-01-13] MEDS: FERROUS SULFATE 325 MG TAB PO SCH (07:59)
[2023-01-13] MEDS: SIMETHICONE 80 MG CHEW PO SCH ×4 (07:59→21:23)
[2023-01-13] MEDS ORDERED: PRENATAL VITAMIN 1 TAB PO SCH (08:00)
--- NOTE | 2023-01-13 10:02 | Obstetrical Progress Note ---
Date of Service January 13, 2023 Subjective Ambulation: ambulating normally Voiding: no voiding problems Passing Gas:: Yes Diet Tolerance:: regular diet Lochia:: Small Feeding Type:: bottle feeding Current Pain Level(1-10): 0 doing well Physical Exam Constitutional WD/WN, vitals as above Gastrointestinal (Abdomen) Inspection/Auscultation: abdomen normal to inspection incision c/d/i Musculoskeletal Extremities: extremities normal to inspection Skin no rashes, warm and dry Neurologic patellar DTR's 2+ bilat, sensation intact Psychiatric A+Ox3, euthymic affect Results & Data Vital Signs (Past 12 Hours) Vital Signs Temp Pulse Resp BP BP Pulse Ox O2 Del Method 01/13/23 09:30 18 99 01/13/23 08:30 16 100 01/13/23 07:25 18 100 01/13/23 07:25 36.7 C 80 18 114/74 100 Room Air 01/13/23 06:15 18 100 01/13/23 04:30 18 100 01/13/23 05:00 18 100 01/13/23 03:20 36.7 C 73 18 117/72 100 Room Air 01/13/23 03:00 18 100 01/13/23 02:00 18 97 01/13/23 01:00 18 97 01/13/23 00:00 16 100 01/12/23 23:00 18 100 01/12/23 23:00 36.8 C 76 18 120/70 100 Room Air Laboratory Results 01/12/23 01/12/23 01/12/23 11:59 11:59 11:59 WBC 9.17 RBC 3.57 L Hgb 11.1 L Hct 31.9 L MCV 89.4 MCH 31.1 MCHC 34.8 RDW Std Deviation 40.6 RDW Coeff of Tanya 12.4 Plt Count 159 MPV 10.5 Immature Gran % (Auto) 0.3 Neut % (Auto) 79.6 Lymph % (Auto) 13.8 [place] % (Auto) 4.8 Eos % (Auto) 0.8 Baso % (Auto) 0.7 Neut # (Auto) 7.30 H Lymph # (Auto) 1.27 [place] # (Auto) 0.44 Eos # (Auto) 0.07 Baso # (Auto) 0.06 Immature Gran # (Auto) 0.03 PT INR Fibrinogen Fibrin Degrad Products 10-40 H Cord ABG pH Cord ABG pCO2 Cord ABG pO2 Cord ABG HCO3 Cord ABG Base Excess Cord ABG O2 Sat Cord VBG pH Cord VBG pCO2 Cord VBG pO2 Cord VBG HCO3 Cord VBG Base Excess Cord VBG O2 Sat Blood Gas Comments Sodium 136 Potassium 3.6 Chloride 106 Carbon Dioxide 23 Anion Gap 7 BUN 11 Creatinine 0.80 Est Cr Clr Drug Dosing 93.6 Est GFR ( Amer) 112.3 Est GFR (Non-Af Amer) 96.9 BUN/Creatinine Ratio 13.8 Glucose 84 Calcium 8.3 L Blood Type Antibody Screen Crossmatch 01/12/23 01/12/23 01/12/23 12:05 13:19 13:56 WBC RBC Hgb Hct MCV MCH MCHC RDW Std Deviation RDW Coeff of Tanya Plt Count MPV Immature Gran % (Auto) Neut % (Auto) Lymph % (Auto) [place] % (Auto) Eos % (Auto) Baso % (Auto) Neut # (Auto) Lymph # (Auto) [place] # (Auto) Eos # (Auto) Baso # (Auto) Immature Gran # (Auto) PT 9.8 INR 0.9 Fibrinogen 435 H Fibrin Degrad Products Cord ABG pH Cord ABG pCO2 Cord ABG pO2 Cord ABG HCO3 Cord ABG Base Excess Cord ABG O2 Sat Cord VBG pH Cord VBG pCO2 Cord VBG pO2 Cord VBG HCO3 Cord VBG Base Excess Cord VBG O2 Sat Blood Gas Comments Sodium Potassium Chloride Carbon Dioxide Anion Gap BUN Creatinine Est Cr Clr Drug Dosing Est GFR ( Amer) Est GFR (Non-Af Amer) BUN/Creatinine Ratio Glucose Calcium Blood Type A Negative Antibody Screen NEGATIVE Crossmatch See Detail 01/12/23 01/12/23 01/13/23 16:24 16:24 06:35 WBC 16.15 H RBC 3.30 L Hgb 10.3 L Hct 28.5 L MCV 86.4 MCH 31.2 MCHC 36.1 H RDW Std Deviation 37.7 RDW Coeff of Tanya 11.9 Plt Count 156 MPV 10.4 Immature Gran % (Auto) 0.6 Neut % (Auto) 87.6 Lymph % (Auto) 6.9 [place] % (Auto) 4.8 Eos % (Auto) 0.0 Baso % (Auto) 0.1 Neut # (Auto) 14.15 H Lymph # (Auto) 1.12 L [place] # (Auto) 0.77 H Eos # (Auto) 0.00 Baso # (Auto) 0.01 Immature Gran # (Auto) 0.10 PT INR Fibrinogen Fibrin Degrad Products Cord ABG pH 7.20 Cord ABG pCO2 64 Cord ABG pO2 < 6 Cord ABG HCO3 25 Cord ABG Base Excess -4.2 Cord ABG O2 Sat < 60.0 Cord VBG pH 7.24 Cord VBG pCO2 56 Cord VBG pO2 7 L Cord VBG HCO3 24 Cord VBG Base Excess -4.2 Cord VBG O2 Sat < 60.0 Blood Gas Comments VERDIN VERDIN Sodium Potassium Chloride Carbon Dioxide Anion Gap BUN Creatinine Est Cr Clr Drug Dosing Est GFR ( Amer) Est GFR (Non-Af Amer) BUN/Creatinine Ratio Glucose Calcium Blood Type Antibody Screen Crossmatch
[2023-01-13] MEDS ORDERED: PROMETHAZINE HCL 25 MG in SODIUM CHLORIDE 0.9% 50 ML IV PRN (10:10)
[2023-01-13] MEDS ORDERED: diphenhydrAMINE 50 MG/ML VIAL IV PRN (10:10)
[2023-01-13] MEDS ORDERED: ONDANSETRON INJ 2 MG/ML 2 ML VIAL IV PRN (10:10)
[2023-01-13] MEDS ORDERED: diphenhydrAMINE Capsule 25 MG CAP PO PRN (10:10)
[2023-01-13] MEDS: oxyCODONE/ACETAMINOPHEN 5mg/325mg TAB PO PRN ×4 (10:22→22:35)
[2023-01-13] MEDS: IBUPROFEN 600 MG TAB PO PRN ×3 (14:27→22:36)
[2023-01-13] MEDS ORDERED: bisacodyL 5 MG TABEC PO SCH (20:00)
[2023-01-13] MEDS: DULoxetine HCL 60 MG CAP PO SCH (21:23)
[2023-01-14] MEDS: PRENATAL VITAMIN 1 TAB PO SCH (00:24)
[2023-01-14] MEDS: oxyCODONE/ACETAMINOPHEN 5mg/325mg TAB PO PRN ×2 (06:12→12:18)
[2023-01-14] MEDS: IBUPROFEN 600 MG TAB PO PRN ×2 (06:13→12:17)
[2023-01-14 06:15] LABS: Hematocrit (blood only) 25.5 % (37.0-47.0); Hemoglobin 8.7 g/dl (12.0-16.0)
[2023-01-14] MEDS ORDERED: METHYLPHENIDATE PO SCH (07:00)
[2023-01-14] MEDS ORDERED: PATIENT'S OWN CONTROLLED MED 1 PO SCH (07:00)
[2023-01-14] MEDS: FERROUS SULFATE 325 MG TAB PO SCH (08:45)
[2023-01-14] MEDS: DOCUSATE SODIUM 100 MG CAP PO SCH (08:45)
[2023-01-14] MEDS: SIMETHICONE 80 MG CHEW PO SCH ×2 (08:45→12:18)
--- NOTE | 2023-01-14 10:01 | Obstetrical Progress Note ---
Date of Service January 14, 2023 Subjective Ambulation: ambulating normally Voiding: no voiding problems Passing Gas:: Yes Diet Tolerance:: regular diet Lochia:: Small Feeding Type:: bottle feeding Current Pain Level(1-10): 0 doing well. wants to go home Physical Exam Constitutional WD/WN, vitals as above Gastrointestinal (Abdomen) Inspection/Auscultation: abdomen normal to inspection incision c/d/i Musculoskeletal Extremities: extremities normal to inspection Skin no rashes, warm and dry Neurologic patellar DTR's 2+ bilat, sensation intact Psychiatric A+Ox3, euthymic affect Results & Data Vital Signs (Past 12 Hours) Vital Signs Temp Pulse Pulse Resp BP BP Pulse Ox 01/14/23 08:15 36.4 C L 95 H 14 122/67 98 01/13/23 23:35 01/13/23 23:35 36.7 C 73 18 100/67 98 O2 Del Method 01/14/23 08:15 Room Air 01/13/23 23:35 Room Air 01/13/23 23:35 Room Air Laboratory Results Laboratory Results - last 24 hr 01/13/23 01/14/23 09:11 05:47 Hgb 8.7 L Hct 25.5 L Blood Type A Negative Antibody Screen Cancelled Screen Negative
[2023-01-14] MEDS ORDERED: bisacodyL 10 MG SUPP PR PRN (16:55)
== END 2023-01-14 14:45 | disposition home or self-care (01) | DRG 788 ==
LOC: 4S1 11:10 → 4E2 19:20